=== PATIENT | male | born 1970 | race Caucasian/White ===

== ENCOUNTER 2017-09-10 20:30 | Emergency (ER) | payer MEDICAID ==
[2017-09-10] MEDS: ACETAMINOPHEN 500 MG TAB PO (22:35)
[2017-09-10] MEDS: KETOROLAC 15 MG INJ IV (22:35)
[2017-09-10 22:36] LABS: WHITE BLOOD COUNT 5.6 10^3/ul (4.8-10.8)
[2017-09-10 22:36] LABS: ABNORMAL IP MESSAGE 1; HEMATOCRIT 44.7 % (42.0-52.0); HEMOGLOBIN 15.1 g/dl (14.0-18.0); MEAN CORPUSCULAR HEMOGLOBIN 28.4 pg (29.0-33.0); MEAN CORPUSCULAR HGB CONC 33.8 g/dl (32.0-37.0); MEAN CORPUSCULAR VOLUME 84.2 fl (82.0-101.0); MEAN PLATELET VOLUME 9.4 fl (7.4-10.4); PLATELET COUNT 292 10^3/UL (140-415); POSITIVE DIFF @See below; RED BLOOD COUNT 5.31 10^6/ul (4.70-6.10); RED CELL DISTRIBUTION WIDTH 14.2 % (11.5-14.5)
[2017-09-10] MEDS: SOD CHLORIDE 0.9% 1,000 ML IV (22:36)
[2017-09-10] MEDS: ONDANSETRON 4 MG INJ IV (22:36)
[2017-09-10 22:40] LABS: ADD MAN DIFF? YES
[2017-09-10 22:54] LABS: ALANINE AMINOTRANSFERASE 20 IU/L (13-69); ALBUMIN 3.8 g/dl (3.3-4.9); ALBUMIN/GLOBULIN RATIO 1.31; ALKALINE PHOSPHATASE 55 IU/L (42-121); ANION GAP 16 (8-16); ASPARTATE AMINO TRANSFERASE 15 IU/L (15-46); BILIRUBIN,INDIRECT 0.6 mg/dl (0-1.1); BILIRUBIN,TOTAL 0.6 mg/dl (0.2-1.3); BLOOD UREA NITROGEN 27 mg/dl (7-20); CALCIUM 8.3 mg/dl (8.4-10.2); CARBON DIOXIDE 25 mmol/L (21-31); CHLORIDE 91 mmol/L (97-110); GLUCOSE 156 mg/dl (70-220); LIPASE 11 U/L (23-300); POTASSIUM 3.5 mmol/L (3.5-5.1); SODIUM 128 mmol/L (135-144); TOTAL PROTEIN 6.7 g/dl (6.1-8.1)
[2017-09-10 23:21] LABS: ANISOCYTOSIS 1+ (0-0); BAND NEUTROPHILS % (M) 37 % (0-4); GIANT THROMBO% (M) 4 % (0-0); LYMPHOCYTES #M 0.3 10^3/ul (0.8-2.9); LYMPHOCYTES % (M) 7 % (15-51); METAMYELOCYTES #M 0.5 10^3/ul (0.0-0.0); METAMYELOCYTES %M 10 % (0-0); MICROCYTOSIS 1+ (0-0); MONOCYTE #M 1.4 10^3/ul (0.3-0.9); MONOCYTES % (M) 25 % (0-11); PLATELET MORPHOLOGY COMMENT @See below; POIKILOCYTOSIS 2+ (0-0); POLYCHROMASIA 2+ (0-0); PROMYELOCYTES #M 0.1 10^3/ul (0-0); PROMYELOCYTES % (M) 2 % (0-0); REACTIVE LYMPHOCYTES% (M) 1 % (0-0); SEG NEUT #M 1.1 10^3/ul (1.6-7.5); SEGMENTED NEUTROPHILS (M) % 18 % (39-77); SMUDGE%M 3 % (0-0)
== END 2017-09-11 01:10 | disposition home or self-care (01) ==
LOC: E/R 09-11 01:10
DX: R19.7 Diarrhea, unspecified (principal); E87.1 Hypo-osmolality and hyponatremia; N28.9 Disorder of kidney and ureter, unspecified; E86.0 Dehydration; Z87.891 Personal history of nicotine dependence
CPT/HCPCS: 36415; 74176; 80053; 83690; 85025; 96374; 96375; 99285-25